=== PATIENT | male | born 1970 | race Caucasian/White ===

== ENCOUNTER 2022-03-01 22:56 | Emergency (ER) | payer OTHER ==
[~2022-03-01] VITALS: Ht 172.7 cm; Wt 63.5 kg
--- NOTE | 2022-03-01 23:39 | NUR ---
BIBSELF C/O +SI NO PLAN WANT VOL PSYCH ADMIT. PT A/OX3. TOLERATING R/A WELL WITH NO RESP DISTRESS. PT AMBULATORY WITH STEADY GAIT. PT CHANGED IN GOWN, BELONGINGS COLLECTED AND PLACED IN LOCKER, AND WANDED BY SECURITY. SAFETY MEASURES IN PLACE.
--- NOTE | 2022-03-01 23:49 | NUR ---
URINE COLLECTED AND SENT TO LAB
[2022-03-02 00:15] LABS: BASOPHILS % (AUTO) 0.7 % (0.0-2.0); EOSINOPHILS % (AUTO) 1.5 % (0.0-6.0); HEMATOCRIT 48 % (39-51); HEMOGLOBIN 16.3 g/dL (13.5-17.5); MEAN CORPUSCULAR HGB CONC 34 g/dl (31.0-36.0); MEAN CORPUSCULAR VOLUME 89 fL (80-96); MONOCYTES # (AUTO) 0.5 K/uL (0.1-1.30); MONOCYTES % (AUTO) 7.6 % (2.0-12.0); NEUTROPHILS # (AUTO) 2.8 K/uL (1.8-8.9); NEUTROPHILS % (AUTO) 43.2 % (43.0-81.0); PLATELET COUNT (AUTO) 301 K/uL (150-450); RED BLOOD CELL COUNT(AUTO) 5.33 MIL/uL (4.5-6.0); WHITE BLOOD COUNT (AUTO) 6.5 K/uL (4.3-11.0)
[2022-03-02 00:22] LABS: BILIRUBIN,URINE NEGATIVE (NEGATIVE); COLOR,URINE YELLOW (YELLOW); LEUKOCYTE ESTERASE ,URINE NEGATIVE (NEGATIVE); NITRITE, URINE NEGATIVE (NEGATIVE); PH,URINE 5.5 (5.0-8.0); PROTEIN,URINE NEGATIVE (NEGATIVE); UGLUCOSE NEGATIVE (NEGATIVE); UROBILINOGEN,URINE 0.2 EU/dL (0.2)
[2022-03-02 00:36] LABS: CALCIUM, SERUM 8.8 mg/dL (8.5-10.1); CARBON DIOXIDE 29 mmol/L (21-32); CHLORIDE 102 mmol/L (98-107); GLUCOSE 103 mg/dL (74-106); POTASSIUM 4.8 mmol/L (3.5-5.1); SODIUM SERUM 136 mmol/L (136-145); UREA NITROGEN, BLOOD 15 mg/dL (7-18)
[2022-03-02 00:41] LABS: ALANINE AMINOTRANSFERASE 49 U/L (12-78); ALBUMIN 4.1 g/dL (3.4-5.0); ALCOHOL, BLOOD < 3 mg/dL (0-0); ALKALINE PHOSPHATASE 112 U/L (46-116); ASPARTATE AMINOTRANSFERASE 30 U/L (15-37); BILIRUBIN,DIRECT 0.1 mg/dL (0.0-0.2); BILIRUBIN,TOTAL 0.5 mg/dL (0.2-1.0); TOTAL PROTEIN, SERUM 8.2 g/dL (6.4-8.2)
[2022-03-02 00:42] LABS: ACETAMINOPHEN < 2 ug/ml (10-30)
--- NOTE | 2022-03-02 02:23 | NUR ---
CLINICALS FAXED TO [facility]
--- NOTE | 2022-03-02 04:18 | NUR ---
PER NOVEMBER AT [facility] INTAKE: PT IS ACCPETED AT [facility] UNDER CARE OF DR REICH # FOR REPORT: [phone] [facility] ETA: [phone]
--- NOTE | 2022-03-02 04:52 | NUR ---
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
--- NOTE | 2022-03-02 04:55 | NUR ---
REPORT GIVEN TO NURSE TALON
[2022-03-02 04:57] VITALS: BP 145/87
--- NOTE | 2022-03-02 05:24 | NUR ---
REPORT GIVEN TO EMS AT BEDSIDE. PATIENT STABLE.
== END 2022-03-02 05:25 ==
LOC: ER 22:56
DX: R45.851 Suicidal ideations (principal); F15.10 Other stimulant abuse, uncomplicated; Z59.01 Sheltered homelessness; Z20.822 Contact with and (suspected) exposure to COVID-19
CPT/HCPCS: 99285; 85025; 80048; 80076; 81003; 36415; 87426; 80143; 80320; 80307; C9803; G0480